=== PATIENT | female | born 1970 | race African-American/Black ===

== ENCOUNTER 2016-08-01 11:06 | Emergency (ER) | payer SELFPAY ==
[~2016-08-01] VITALS: Ht 175.3 cm; Wt 91.9 kg
[2016-08-01] MEDS ORDERED: SODIUM CHLORIDE FLUSH 10ML SYR IVF ONE (12:00)
[2016-08-01] MEDS ORDERED: ASPIRIN 81 MG TABLET CHEW PO ONE (12:00)
[2016-08-01] MEDS ORDERED: KETOROLAC 30 MG/1 ML IVPush ONE (12:00)
[2016-08-01] MEDS ORDERED: KETOROLAC 30 MG/1 ML ONE (12:31)
[2016-08-01] MEDS ORDERED: ASPIRIN 81 MG TABLET CHEW ONE (12:31)
[2016-08-01 12:37] LABS: BLOOD UREA NITROGEN 7 mg/dL (7-18)
[2016-08-01 13:19] VITALS: BP 171/103
== END 2016-08-01 14:42 | disposition left against medical advice (07) ==
LOC: ED 11:58
DX: R07.89 Other chest pain (principal); R06.00 Dyspnea, unspecified; E78.00 Pure hypercholesterolemia, unspecified; E11.9 Type 2 diabetes mellitus without complications; I10 Essential (primary) hypertension; Z88.0 Allergy status to penicillin; Z88.8 Allergy status to other drugs, medicaments and biological substances; Z86.711 Personal history of pulmonary embolism
CPT/HCPCS: 36415; 71020; 80048; 82040; 83880; 84484; 85025; 85610; 85730; 93005; 93971; 96374; 99285; J1885

== ENCOUNTER 2016-09-13 22:12 | Inpatient (IN) | payer MEDICAID ==
[~2016-09-13] VITALS: Ht 172.7 cm; Wt 96.9 kg
[2016-09-13] MEDS ORDERED: ASPIRIN 325 MG TABLET PO STA (22:18)
[2016-09-13] MEDS ORDERED: SODIUM CHLORIDE 0.9% 1,000 ML IV SCH (22:18)
[2016-09-13] MEDS ORDERED: MIDAZOLAM 1 MG/ML, 5ML ONE (22:21)
[2016-09-13] MEDS ORDERED: FENTANYL PF 100 MCG/2ML ONE (22:21)
[2016-09-13] MEDS ORDERED: VERAPAMIL 2.5 MG/ML, 2ML ONE (22:21)
[2016-09-13] MEDS ORDERED: LIDOCAINE 2%, 20ML ONE (22:21)
[2016-09-13] MEDS ORDERED: TICAGRELOR 90 MG TABLET ONE (22:21)
[2016-09-13] MEDS ORDERED: HEPARIN 1,000 UNITS/ML, 10ML ONE (22:21)
[2016-09-13] MEDS ORDERED: BIVALIRUDIN 250 MG ONE (22:21)
[2016-09-13] MEDS ORDERED: MORPHINE SULFATE 4 MG/ML, 1ML ONE (22:26)
[2016-09-13] MEDS ORDERED: FENTANYL PF 100 MCG/2ML IVPush PRN ×2 (22:30)
[2016-09-13] MEDS ORDERED: METOPROLOL 1 MG/ML, 5ML IVPush ONE (22:30)
[2016-09-13] MEDS ORDERED: NITROGLYCERIN SINGLE TAB 0.4 MG SL PRN (22:30)
[2016-09-13] MEDS ORDERED: PLEASE ENTER HEIGHT AND WEIGHT MC SCH (22:30)
[2016-09-13] MEDS ORDERED: LABETALOL 5MG/ML, 20ML ONE (22:33)
[2016-09-13] MEDS ORDERED: HEPARIN 1,000 UNITS/ML, 10ML IV STA (22:42)
[2016-09-13] MEDS ORDERED: EPTIFIBATIDE 100 ML IV ONE (22:56)
[2016-09-13] MEDS ORDERED: NITROGLYCERIN/D5W PMX 250 ML ONE (23:00)
[2016-09-13] MEDS ORDERED: MORPHINE SULFATE 4 MG/ML, 1ML IVPush ONE (23:00)
[2016-09-13] MEDS ORDERED: ONDANSETRON 2MG/ML, 2ML ONE (23:00)
[2016-09-13] MEDS ORDERED: FUROSEMIDE 40 MG/4 ML ONE (23:25)
[2016-09-13] MEDS ORDERED: ASPIRIN 81 MG TABLET CHEW ONE (23:26)
[2016-09-13] MEDS ORDERED: METOPROLOL 1 MG/ML, 5ML ONE (23:26)
[2016-09-13] MEDS ORDERED: HEPARIN 5,000 UNITS/ML, 1ML ONE (23:26)
[2016-09-13] MEDS ORDERED: PHENYLEPHRINE 10 MG/ML ONE (23:48)
[2016-09-14] MEDS ORDERED: SODIUM CHLORIDE 0.9% 1,000 ML IV SCH (00:30)
[2016-09-14] MEDS: EPTIFIBATIDE 100 ML IV SCH ×3 (00:30→10:02)
[2016-09-14] MEDS: ATORVASTATIN 80 MG TABLET PO SCH ×2 (00:47→20:35)
[2016-09-14] MEDS: INSULIN ASPART 100 UNITS/ML, PEN SQ-INSULIN SCH ×5 (01:28→20:36)
[2016-09-14] MEDS: ENALAPRILAT 1.25 MG/ML, 2ML IVPush PRN ×3 (01:29→12:59)
[2016-09-14] MEDS ORDERED: DEXTROSE 4 GM TAB.CHEW PO PRN (01:30)
[2016-09-14] MEDS ORDERED: DOCUSATE 100 MG CAPSULE PO PRN (01:30)
[2016-09-14] MEDS ORDERED: POLYETHYLENE GLYCOL 17 GM PACKET PO PRN (01:30)
[2016-09-14] MEDS ORDERED: DEXTROSE 50%, 50ML SYRINGE IVPush PRN (01:30)
[2016-09-14] MEDS ORDERED: BISACODYL 10 MG SUPP PR PRN (01:30)
[2016-09-14] MEDS ORDERED: GLUCAGON 1 MG IM PRN (01:30)
[2016-09-14] MEDS ORDERED: ALBUTEROL/IPRATROPIUM 2.5MG/0.5MG, 3 ML HHN PRN (03:00)
[2016-09-14 04:30] VITALS: BP 158/96
[2016-09-14 05:00] LABS: BLOOD UREA NITROGEN 7 mg/dL (7-18)
[2016-09-14] MEDS: CARVEDILOL 6.25 MG TABLET PO SCH ×2 (05:08→17:20)
[2016-09-14] MEDS: ASPIRIN 81 MG TABLET EC PO SCH (05:08)
[2016-09-14 05:09] LABS: ASPARTATE AMINO TRANSFERASE 142 U/L (15-37)
[2016-09-14] MEDS ORDERED: ALBUTEROL SULFATE 2.5 MG/3 ML NPPB SCH ×2 (07:00→15:00)
[2016-09-14] MEDS: TICAGRELOR 90 MG TABLET PO SCH ×2 (08:00→20:35)
[2016-09-14] MEDS: SODIUM CHLORIDE FLUSH 10ML SYR IVF SCH ×2 (08:05→20:36)
[2016-09-14] MEDS ORDERED: LISINOPRIL 10 MG TABLET PO SCH (09:00)
[2016-09-14] MEDS ORDERED: HYDROCHLOROTHIAZIDE 12.5 MG CAPSULE PO SCH (09:00)
[2016-09-14] MEDS ORDERED: SENNA/DOCUSATE TABLET PO SCH (09:00)
[2016-09-14] MEDS: LABETALOL 5MG/ML, 20ML IVPush PRN ×2 (10:10→15:22)
[2016-09-14 10:13] VITALS: BP_SYST 140; BP_DIAS 125; BP_DIAS 93
[2016-09-14] MEDS ORDERED: LISINOPRIL 10 MG TABLET PO ONE (12:00)
[2016-09-14 12:57] VITALS: BP 175/122
[2016-09-14 17:15] VITALS: BP 153/105
[2016-09-14 20:34] VITALS: BP 149/86
[2016-09-14] MEDS ORDERED: HYDROCHLOROTHIAZIDE 12.5 MG CAPSULE PO ONE (21:00)
[2016-09-14] MEDS ORDERED: LISINOPRIL 20 MG TABLET PO SCH ×2 (21:00)
[2016-09-15 01:49] VITALS: BP 141/92
[2016-09-15 05:44] LABS: BLOOD UREA NITROGEN 6 mg/dL (7-18)
[2016-09-15] MEDS: CARVEDILOL 6.25 MG TABLET PO SCH (05:46)
[2016-09-15] MEDS: ASPIRIN 81 MG TABLET EC PO SCH (05:46)
[2016-09-15 07:25] VITALS: BP 137/87
[2016-09-15] MEDS ORDERED: PRASUGREL 10 MG TABLET PO ONE (09:00)
[2016-09-15] MEDS ORDERED: PRASUGREL 10 MG TABLET PO SCH (09:00)
[2016-09-15] MEDS ORDERED: LISINOPRIL 20 MG TABLET PO SCH ×2 (09:00)
[2016-09-15] MEDS ORDERED: HYDROCHLOROTHIAZIDE 25 MG TABLET PO SCH (09:00)
== END 2016-09-15 08:16 | disposition left against medical advice (07) | DRG 250 ==
LOC: ED 22:46 → CCU 23:51 → 5SO 09-14 12:52
PROVIDERS: ADMIT Internal Medicine; ATTEND Internal Medicine
PROC: 02703ZZ Dilation of Coronary Artery, One Artery, Percutaneous Approach (ICD-10-PCS; principal; 2016-09-14)
PROC: 02C03ZZ Extirpation of Matter from Coronary Artery, One Artery, Percutaneous Approach (ICD-10-PCS; 2016-09-14)
PROC: 4A023N7 Measurement of Cardiac Sampling and Pressure, Left Heart, Percutaneous Approach (ICD-10-PCS; 2016-09-14)
PROC: B2111ZZ Fluoroscopy of Multiple Coronary Arteries using Low Osmolar Contrast (ICD-10-PCS; 2016-09-14)
DX: T82.867A Thrombosis due to cardiac prosthetic devices, implants and grafts, initial encounter (principal); I21.19 ST elevation (STEMI) myocardial infarction involving other coronary artery of inferior wall; I25.10 Atherosclerotic heart disease of native coronary artery without angina pectoris; E11.65 Type 2 diabetes mellitus with hyperglycemia; E78.5 Hyperlipidemia, unspecified; I10 Essential (primary) hypertension; I16.0 Hypertensive urgency; Y83.1 Surgical operation with implant of artificial internal device as the cause of abnormal reaction of the patient, or of later complication, without mention of misadventure at the time of the procedure; E66.01 Morbid (severe) obesity due to excess calories; Z53.21 Procedure and treatment not carried out due to patient leaving prior to being seen by health care provider; F17.210 Nicotine dependence, cigarettes, uncomplicated; J45.909 Unspecified asthma, uncomplicated; Z86.711 Personal history of pulmonary embolism; Z91.19 Patient's noncompliance with other medical treatment and regimen; Z68.32 Body mass index [BMI] 32.0-32.9, adult; Z88.0 Allergy status to penicillin; Z88.8 Allergy status to other drugs, medicaments and biological substances; Z79.01 Long term (current) use of anticoagulants; Z90.89 Acquired absence of other organs; Z82.5 Family history of asthma and other chronic lower respiratory diseases; Z82.3 Family history of stroke; Z82.49 Family history of ischemic heart disease and other diseases of the circulatory system; Z83.3 Family history of diabetes mellitus
CPT/HCPCS: 36415; 71010; 80047; 80048; 80053; 80061; 82962; 83036; 83735; 84100; 84443; 84484; 85025; 85610; 85730; 87081; 92920; 93005; 93308; 93321; 93325; 93458; 94640; 96374; 96375; 99156; 99157; C1894; J0583; J1644; J1815; J1940; J2250; J2405; J3010; J3490; J7620; 92928; C1725; C1757; C1769; C1887; J1327; J2370; J7030; Q9967

== ENCOUNTER 2017-04-09 20:13 | Observation (INO) | payer MEDICAID ==
[~2017-04-09] VITALS: Ht 175.3 cm; Wt 87.3 kg
[2017-04-09] MEDS ORDERED: ASPIRIN 81 MG TABLET CHEW PO ONE (20:30)
[2017-04-09] MEDS ORDERED: ASPIRIN 81 MG TABLET CHEW ONE (20:36)
[2017-04-09 21:12] LABS: ALBUMIN 3.4 g/dL (3.4-5.0); ANION GAP 8 mmol/L (5-15); CALCIUM 8.5 mg/dL (8.5-10.1); CHLORIDE 107 mmol/L (98-107); CREATININE 0.87 mg/dL (0.55-1.02)
[2017-04-09] MEDS ORDERED: NITROGLYCERIN SINGLE TAB 0.4 MG SL ONE (21:12)
[2017-04-09] MEDS: NITROGLYCERIN SINGLE TAB 0.4 MG SL PRN ×3 (21:15→21:26)
[2017-04-09 21:16] LABS: TROPONIN I < 0.015 ng/mL (0.000-0.045)
[2017-04-09 21:22] LABS: MEAN CORPUSCULAR HGB CONC 32.8 g/dL (32.4-35.8); MEAN CORPUSCULAR VOLUME 91.3 fL (80-100); MEAN PLATELET VOLUME 8.8 fL (7.4-10.4); PLATELET COUNT 226 x10^3/uL (130-400); RED BLOOD COUNT 5.07 x10^6/uL (3.82-5.3); RED CELL DISTRIBUTION WIDTH 13.5 % (9.6-15.2)
[2017-04-09 21:25] LABS: BASOPHILS # (AUTO) 0.03 x10^3/uL (0-0.1); BASOPHILS % (AUTO) 1 % (0-1); EOSINOPHILS # (AUTO) 0.12 x10^3/uL (0-0.4); EOSINOPHILS % (AUTO) 2 % (1-7); LYMPHOCYTES # (AUTO) 2.01 x10^3/uL (1-3.4); LYMPHOCYTES % (AUTO) 33 % (22-44); MD SCAN; MONOCYTES # (AUTO) 0.33 x10^3/uL (0.2-0.8); MONOCYTES % (AUTO) 5 % (2-9); NEUTROPHILS # (AUTO) 3.61 x10^3/uL (1.8-6.8); NEUTROPHILS % (AUTO) 59 % (42-75)
[2017-04-09] MEDS ORDERED: MORPHINE SULFATE 4 MG/ML, 1ML ONE (21:32)
[2017-04-09] MEDS ORDERED: ONDANSETRON 2MG/ML, 2ML ONE (21:37)
[2017-04-09] MEDS ORDERED: ONDANSETRON 2MG/ML, 2ML IVPush ONE (22:00)
[2017-04-09] MEDS ORDERED: MORPHINE SULFATE 4 MG/ML, 1ML IVPush PRN (22:00)
[2017-04-09] MEDS ORDERED: SODIUM CHLORIDE FLUSH 10ML SYR IVF PRN (22:30)
[2017-04-09] MEDS ORDERED: TEMAZEPAM 15 MG CAPSULE PO PRN (23:00)
[2017-04-09] MEDS ORDERED: ACETAMINOPHEN 325 MG TABLET PO PRN (23:00)
[2017-04-09] MEDS ORDERED: ENOXAPARIN 40 MG/0.4 ML SQ SCH (23:00)
[2017-04-09] MEDS ORDERED: ONDANSETRON 2MG/ML, 2ML IVPush PRN (23:00)
[2017-04-09] MEDS ORDERED: DOCUSATE 100 MG CAPSULE PO PRN (23:00)
[2017-04-09] MEDS ORDERED: ENALAPRILAT 1.25 MG/ML, 2ML IVPush PRN (23:00)
[2017-04-10] VITALS (7 sets, daily range): BP systolic 112–173; BP diastolic 68–106
[2017-04-10 03:13] LABS: TROPONIN I < 0.015 ng/mL (0.000-0.045)
[2017-04-10] MEDS: NITROGLYCERIN 0.4 MG BOTTLE (25 TABS) SL PRN ×2 (09:07→09:16)
[2017-04-10] MEDS ORDERED: REGADENOSON 0.4 MG/5 ML SYRINGE ONE (09:33)
[2017-04-10] MEDS: morphine SULFATE 10 MG/ML, 1ML IVPush PRN ×2 (09:37→12:33)
[2017-04-10 09:57] LABS: TROPONIN I < 0.015 ng/mL (0.000-0.045)
[2017-04-10] MEDS ORDERED: NICOTINE 14MG/24 HR PATCH.TD24 TD SCH (13:00)
[2017-04-10] MEDS ORDERED: INSULIN LISPRO 100 UNITS/ML, PEN SQ-INSULIN SCH (16:00)
[2017-04-10] MEDS ORDERED: ASPI-621 PO (16:55)
== END 2017-04-10 18:13 | disposition home or self-care (01) ==
LOC: ED 21:37 → INTOOBSV 22:44 → EDIP 22:44 → 5SO 23:19
PROVIDERS: ADMIT Internal Medicine; ATTEND Internal Medicine
DX: I25.110 Atherosclerotic heart disease of native coronary artery with unstable angina pectoris (principal); Z91.19 Patient's noncompliance with other medical treatment and regimen; I16.0 Hypertensive urgency; I11.0 Hypertensive heart disease with heart failure; I50.32 Chronic diastolic (congestive) heart failure; I25.2 Old myocardial infarction; J44.9 Chronic obstructive pulmonary disease, unspecified; E11.65 Type 2 diabetes mellitus with hyperglycemia; F17.210 Nicotine dependence, cigarettes, uncomplicated; Z91.14 Patient's other noncompliance with medication regimen; Z95.5 Presence of coronary angioplasty implant and graft
CPT/HCPCS: 36415; 71046; 78452; 80048; 82040; 82962; 83880; 84484; 85025; 93005; 93017; 93306; 96372; 96374; 96375; 96376; 99285; A9502; C9898; G0378; J1650; J1815; J2270; J2405; J2785